=== PATIENT | male | born 1940 | race Caucasian/White ===

== ENCOUNTER → 2017-07-27 | Outpatient (CLI) | payer OTHER ==
[~2017-07-27] MED LIST: ACIDOPHILUS PROB1 MG; ADVICOR 500 MG1 EACH PO; ASPIR 8181 MG PO; CALCIUM 600 +1 EAC1 PO; CIMZIA400 MG/2 M SQ; FLAX SEED OIL1000 MG PO; FLOMAX0.4 MG PO; LISINOPRIL5 MG PO; LYRICA 75 MG CA75 MG PO; SYMBICORT160 MCG/4. INH; TOPROL XL50 MG PO; ULORIC40 MG PO; UNICOMPLEX M TA1 TA1; URECHOLINE 10 M10 M1 PO
== END ==
LOC: RAD 16:08
DX: J44.9 Chronic obstructive pulmonary disease, unspecified (principal)

== ENCOUNTER → 2017-08-09 | Outpatient (CLI) | payer OTHER | LOC: CAT 13:01 | DX: R91.1 Solitary pulmonary nodule (principal); J43.8 Other emphysema; R91.8 Other nonspecific abnormal finding of lung field; J47.9 Bronchiectasis, uncomplicated; R59.9 Enlarged lymph nodes, unspecified; J84.10 Pulmonary fibrosis, unspecified; J44.9 Chronic obstructive pulmonary disease, unspecified; I25.10 Atherosclerotic heart disease of native coronary artery without angina pectoris; J98.4 Other disorders of lung ==

== ENCOUNTER 2018-08-04 17:14 | Emergency (ER) | payer OTHER ==
[~2018-08-04] VITALS: Ht 177.8 cm; Wt 86.2 kg
[2018-08-04] MEDS ORDERED: NORFLEX100 MG PO (19:22)
[2018-08-04] MEDS ORDERED: VOLTAREN GEL 1100 G2 TOP (19:22)
[2018-08-04] MEDS ORDERED: NORCO 5-325 TA1 EACH PO (19:32)
[2018-08-04 19:36] VITALS: BP 128/71
== END 2018-08-04 19:37 | disposition home or self-care (01) ==
LOC: ER 17:14
DX: M54.12 Radiculopathy, cervical region (principal); I10 Essential (primary) hypertension; J44.9 Chronic obstructive pulmonary disease, unspecified; E78.00 Pure hypercholesterolemia, unspecified; M06.9 Rheumatoid arthritis, unspecified; M10.9 Gout, unspecified; Z90.49 Acquired absence of other specified parts of digestive tract; Z95.5 Presence of coronary angioplasty implant and graft; Z88.8 Allergy status to other drugs, medicaments and biological substances

== ENCOUNTER → 2018-11-14 | Outpatient (CLI) | payer OTHER ==
[~2018-11-14] MED LIST changes: +NORCO 5-325 TA1 EACH PO; +NORFLEX100 MG PO; +VOLTAREN GEL 1100 G2 TOP
== END ==
LOC: CAT 11-09 09:58
DX: J43.2 Centrilobular emphysema (principal); R91.8 Other nonspecific abnormal finding of lung field; N28.1 Cyst of kidney, acquired; I25.10 Atherosclerotic heart disease of native coronary artery without angina pectoris; I65.29 Occlusion and stenosis of unspecified carotid artery; E78.5 Hyperlipidemia, unspecified; Z88.1 Allergy status to other antibiotic agents; Z88.8 Allergy status to other drugs, medicaments and biological substances; Z82.49 Family history of ischemic heart disease and other diseases of the circulatory system; Z82.3 Family history of stroke; Z87.891 Personal history of nicotine dependence

== ENCOUNTER 2018-11-21 09:14 | Emergency (ER) | payer OTHER ==
[~2018-11-21] VITALS: Ht 177.8 cm; Wt 88.5 kg
[2018-11-21] MEDS ORDERED: PROSCAR 5MG TABL5 MG PO (09:29)
[2018-11-21] MEDS ORDERED: COZAAR 25 MG TA25 M1 PO (09:32)
[2018-11-21] MEDS ORDERED: LIPITOR40 MG PO (09:32)
[2018-11-21] MEDS ORDERED: ORENCIA CL125 MG/1 M SUBQ (09:33)
[2018-11-21 10:31] LABS: ABSOLUTE NEUTROPHILS 5.2 thou/uL (1.4-8.2); BASOPHILS 0.5 % (0.0-2.0)
[2018-11-21 10:33] LABS: HEMOGLOBIN 12.1 gm/dL (14.0-18.0); LYMPHOCYTES 9.4 % (24.0-44.0); MCH 31.5 pg (26.0-34.0); MCHC 33.6 g/dL (28.0-37.0); MCV 93.8 fL (80.0-100.0); MONOCYTES 11.3 % (1.0-8.0); PLATELET COUNT 165 thou/uL (150-400); POLYS 76.8 % (36.0-66.0); RBC 3.84 mil/uL (4.50-6.00); RDW 13.2 % (10.5-14.5); WBC 6.8 thou/uL (4.0-11.0)
[2018-11-21 10:34] LABS: CALCIUM 9.5 mg/dL (8.5-10.1); CREATININE 1.9 mg/dL (0.7-1.3); POTASSIUM 4.1 mmol/L (3.5-5.1)
[2018-11-21] MEDS ORDERED: NORCO 5-325 TA1 EACH PO (12:14)
[2018-11-21] MEDS ORDERED: COLCHICINE0.6 MG PO (12:14)
[2018-11-21 12:29] VITALS: BP 149/82
--- NOTE | 2018-11-21 16:11 | EKG ---
[place] [address] [facility] [place] [address] ELECTROCARDIOGRAM REPORT Name: NICOLEROBERT GOODRICH [facility] [id number] ������������������ Admission: 11/21/18 ������������������ Attend Phys: Discharge: 11/21/18 ������������������ Date of : 44 Report #: [id number] ����������������������������������������������������������������� [id number] THIS REPORT FOR: //name// [facility] ED Test Date: 2018-11-21 Test Time: 09:30:45 Pat Name: ROBERT RIVERA Department: Room: Gender: M Threader: sol : 1940 Requested By: Nani Marrufo Order Number: [id number] MD: Ger Hicks Measurements Intervals [place] Rate: 80 P: 44 PA: 142 QRS: 40 QRSD: 93 T: 60 QT: 378 QTc: 436 Interpretive Statements Sinus rhythm Abnormal R-wave progression, early transition No previous ECG available for comparison Electronically Signed On 11-21-2018 16:11:28 CDT by Ger Hicks [email or web address] ��������������������������������������������� <ELECTRONICALLY SIGNED> ���������������������������������������� By: Ger Hicks MD ��������������������������������������������� 11/21/18 1611 0930 09 MD SUSI Arroyo
== END 2018-11-21 12:29 | disposition home or self-care (01) ==
LOC: ER 09:14
PROVIDERS: Emergency Medicine
DX: M10.072 Idiopathic gout, left ankle and foot (principal); I10 Essential (primary) hypertension; J44.9 Chronic obstructive pulmonary disease, unspecified; E78.00 Pure hypercholesterolemia, unspecified; M06.9 Rheumatoid arthritis, unspecified; Z90.49 Acquired absence of other specified parts of digestive tract; Z95.5 Presence of coronary angioplasty implant and graft; Z88.8 Allergy status to other drugs, medicaments and biological substances

== ENCOUNTER → 2019-02-14 | Outpatient (CLI) | payer OTHER ==
[~2019-02-14] MED LIST changes: +COLCHICINE0.6 MG PO; +COZAAR 25 MG TA25 M1 PO; +LIPITOR40 MG PO; +ORENCIA CL125 MG/1 M SUBQ; +PROSCAR 5MG TABL5 MG PO
== END ==
LOC: NUC 08:50
DX: M25.821 Other specified joint disorders, right elbow (principal); M25.872 Other specified joint disorders, left ankle and foot; M89.9 Disorder of bone, unspecified

== ENCOUNTER 2019-05-25 17:01 | Emergency (ER) | payer OTHER ==
[~2019-05-25] VITALS: Ht 177.8 cm; Wt 86.2 kg
[2019-05-25 18:23] LABS: EOSINOPHILS 0.8 % (0.0-3.0); HEMATOCRIT 40.3 % (42.0-52.0); HEMOGLOBIN 13.6 gm/dL (14.0-18.0); LYMPHOCYTES 7.1 % (24.0-44.0); MCH 31.7 pg (26.0-34.0); MCHC 33.8 g/dL (28.0-37.0); MCV 93.6 fL (80.0-100.0); MONOCYTES 7.2 % (1.0-8.0); PLATELET COUNT 172 thou/uL (150-400); POLYS 83.9 % (36.0-66.0); WBC 9.5 thou/uL (4.0-11.0)
[2019-05-25 18:51] LABS: ANION GAP 5 mmol/L (7-16); BUN 18 mg/dL (7-18); CALCIUM 9.5 mg/dL (8.5-10.1); CHLORIDE 98 mmol/L (98-107); CO2 32 mmol/L (21-32); CREATININE 1.5 mg/dL (0.7-1.3); GLUCOSE 148 mg/dL (74-106); POTASSIUM 4.5 mmol/L (3.5-5.1); SODIUM 135 mmol/L (136-145)
[2019-05-25 19:01] LABS: ALBUMIN 3.2 g/dL (3.4-5.0); SGOT 22 U/L (15-37); SGPT 17 U/L (30-65); TOTAL BILIRUBIN 0.5 mg/dL (<0.1-1.0); TOTAL PROTEIN 7.8 g/dL (6.4-8.2); TROPONIN-I <0.06 ng/mL (<0.06)
[2019-05-25] MEDS ORDERED: MOBIC7.5 MG PO (19:06)
[2019-05-25] MEDS ORDERED: LIDODERM1 EACH TOP (19:06)
[2019-05-25 19:10] VITALS: BP 149/76
[2019-05-25] MEDS ORDERED: PERCOCET 5-3251 EACH PO (19:14)
--- NOTE | 2019-05-26 11:01 | EKG ---
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
== END 2019-05-25 19:18 | disposition home or self-care (01) ==
LOC: ER 17:01
PROVIDERS: Nurse Practitioner Family
DX: M62.830 Muscle spasm of back (principal); M10.9 Gout, unspecified; I10 Essential (primary) hypertension; J44.9 Chronic obstructive pulmonary disease, unspecified; E78.00 Pure hypercholesterolemia, unspecified; Z90.49 Acquired absence of other specified parts of digestive tract; Z87.891 Personal history of nicotine dependence; Z88.8 Allergy status to other drugs, medicaments and biological substances; M06.9 Rheumatoid arthritis, unspecified

== ENCOUNTER 2019-07-12 19:28 | Emergency (ER) | payer OTHER ==
[~2019-07-12] VITALS: Ht 177.8 cm; Wt 86.2 kg
[~2019-07-12 19:28] MED LIST changes: +LIDODERM1 EACH TOP; +MOBIC7.5 MG PO; +PERCOCET 5-3251 EACH PO
[2019-07-12] MEDS ORDERED: TRELEGY ELLIPT1 EACH INH (20:00)
[2019-07-12] MEDS ORDERED: CALCIUM WITH V1 EAC1 PO (20:02)
[2019-07-12 21:15] LABS: ABSOLUTE NEUTROPHILS 7.6 thou/uL (1.4-8.2); BASOPHILS 1.1 % (0.0-2.0); HEMATOCRIT 37.5 % (42.0-52.0); HEMOGLOBIN 12.6 gm/dL (14.0-18.0); LYMPHOCYTES 8.3 % (24.0-44.0); MCH 31.5 pg (26.0-34.0); MCHC 33.5 g/dL (28.0-37.0); MONOCYTES 10.2 % (1.0-8.0); PLATELET COUNT 165 thou/uL (150-400); POLYS 79.4 % (36.0-66.0); RBC 3.99 mil/uL (4.50-6.00); RDW 13.7 % (10.5-14.5); WBC 9.5 thou/uL (4.0-11.0)
[2019-07-12 21:24] LABS: CALCIUM 9.4 mg/dL (8.5-10.1); POTASSIUM 4.7 mmol/L (3.5-5.1)
[2019-07-12 23:56] LABS: URINE BILIRUBIN NEGATIVE (Negative); URINE BLOOD NEGATIVE (Negative); URINE CLARITY CLEAR; URINE COLOR YELLOW; URINE GLUCOSE-RANDOM* NEGATIVE (Negative); URINE KETONES NEGATIVE (Negative); URINE NITRITE-REFLEX NEGATIVE (Negative); URINE PROTEIN (DIPSTICK) NEGATIVE (Negative); URINE SPECIFIC GRAVITY <= 1.005 (1.005-1.035); URINE UROBILINOGEN 0.2 E.U./dl (0.2-1.0)
[2019-07-13 00:04] LABS: URINE LEUKOCYTES-REFLEX 3+ (Negative)
[2019-07-13 00:37] LABS: SQUAMOUS None Seen /LPF (0-3)
[2019-07-13 00:38] LABS: BACTERIA-REFLEX 1-9 Few /HPF (None Seen); CASTS None Seen /LPF (None Seen); CRYSTALS None Seen /LPF (None Seen); MUCUS None Seen strn/LPF (None Seen); TRANSITIONAL EPITHEL CELL 4-10 Moderate /LPF (None Seen); URINE RBC None Seen /HPF (0-2)
[2019-07-13] MEDS ORDERED: NORCO 5-325 TA1 EAC1 PO (00:48)
[2019-07-13] MEDS ORDERED: KEFLEX500 M1 PO (00:48)
[2019-07-13] MEDS ORDERED: NORFLEX100 MG PO (00:48)
[2019-07-13] MEDS ORDERED: SENNA-DOCUSATE1 EAC1 PO (00:48)
[2019-07-13 01:43] VITALS: BP 113/77
== END 2019-07-13 01:45 | disposition home or self-care (01) ==
LOC: ER 19:28
PROVIDERS: Emergency Medicine
DX: R33.9 Retention of urine, unspecified (principal); M10.9 Gout, unspecified; I10 Essential (primary) hypertension; J44.9 Chronic obstructive pulmonary disease, unspecified; E78.00 Pure hypercholesterolemia, unspecified; Z90.89 Acquired absence of other organs; Z79.82 Long term (current) use of aspirin; Z79.899 Other long term (current) drug therapy; Z88.8 Allergy status to other drugs, medicaments and biological substances; Z87.891 Personal history of nicotine dependence

== ENCOUNTER 2019-07-22 19:04 | Emergency (ER) | payer OTHER ==
[~2019-07-22] VITALS: Ht 177.8 cm; Wt 86.2 kg
[~2019-07-22 19:04] MED LIST changes: +CALCIUM WITH V1 EAC1 PO; +KEFLEX500 M1 PO; +NORCO 5-325 TA1 EAC1 PO; +SENNA-DOCUSATE1 EAC1 PO; +TRELEGY ELLIPT1 EACH INH
[2019-07-22 20:25] LABS: ABSOLUTE NEUTROPHILS 8.1 thou/uL (1.4-8.2); BASOPHILS 0.5 % (0.0-2.0); EOSINOPHILS 2.1 % (0.0-3.0); HEMATOCRIT 39.7 % (42.0-52.0); HEMOGLOBIN 13.3 gm/dL (14.0-18.0); LYMPHOCYTES 8.1 % (24.0-44.0); MCH 31.3 pg (26.0-34.0); MCHC 33.7 g/dL (28.0-37.0); MCV 92.8 fL (80.0-100.0); MONOCYTES 10.1 % (1.0-8.0); PLATELET COUNT 229 thou/uL (150-400); POLYS 79.2 % (36.0-66.0); RBC 4.27 mil/uL (4.50-6.00); RDW 13.6 % (10.5-14.5); WBC 10.3 thou/uL (4.0-11.0)
[2019-07-22 20:38] LABS: URINE BILIRUBIN NEGATIVE (Negative); URINE BLOOD 2+ (Negative); URINE CLARITY CLEAR; URINE COLOR YELLOW; URINE GLUCOSE-RANDOM* NEGATIVE (Negative); URINE KETONES NEGATIVE (Negative); URINE LEUKOCYTES-REFLEX TRACE (Negative); URINE NITRITE-REFLEX NEGATIVE (Negative); URINE SPECIFIC GRAVITY 1.015 (1.005-1.035); URINE UROBILINOGEN 0.2 E.U./dl (0.2-1.0)
[2019-07-22 20:38] LABS: CALCIUM 9.4 mg/dL (8.5-10.1); CREATININE 1.7 mg/dL (0.7-1.3); POTASSIUM 4.4 mmol/L (3.5-5.1)
[2019-07-22 20:45] LABS: SSA (PROTEIN CONFIRMATORY) TRACE (APPROX. 5) mg/dL (Negative)
[2019-07-22 20:46] LABS: BACTERIA-REFLEX None Seen /HPF (None Seen); CASTS None Seen /LPF (None Seen); SQUAMOUS None Seen /LPF (0-3); URINE WBC-REFLEX 0-5 Rare /HPF (0-5)
[2019-07-22 20:47] LABS: CRYSTALS None Seen /LPF (None Seen)
[2019-07-22 20:57] LABS: APTT 30.1 Seconds (24.5-32.8); INR 1.1; PROTIME 10.9 Seconds (9.3-11.4)
[2019-07-22] MEDS ORDERED: LASIX 20 MG TAB20 MG PO (22:43)
[2019-07-22 22:53] VITALS: BP 146/75
== END 2019-07-22 23:20 | disposition home or self-care (01) ==
LOC: ER 19:04
PROVIDERS: Emergency Medicine; Physician Assistant
DX: N36.8 Other specified disorders of urethra (principal); R79.0 Abnormal level of blood mineral; M79.89 Other specified soft tissue disorders; I10 Essential (primary) hypertension; E78.00 Pure hypercholesterolemia, unspecified; M10.9 Gout, unspecified; J44.9 Chronic obstructive pulmonary disease, unspecified; Z87.891 Personal history of nicotine dependence; Z90.49 Acquired absence of other specified parts of digestive tract